=== PATIENT | female | born 2000 | race Caucasian/White ===

== ENCOUNTER 2019-05-17 23:36 | Emergency (ER) | payer MEDICAID, SELFPAY ==
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
== END 2019-05-18 00:12 | disposition home or self-care (01) ==
LOC: NAV ERS 23:36
DX: S60.221A Contusion of right hand, initial encounter (principal); G43.909 Migraine, unspecified, not intractable, without status migrainosus; F32.9 Major depressive disorder, single episode, unspecified; F17.210 Nicotine dependence, cigarettes, uncomplicated; Z79.899 Other long term (current) drug therapy; Y04.0XXA Assault by unarmed brawl or fight, initial encounter